=== PATIENT | male | born 1950 | race Caucasian/White ===

== ENCOUNTER → 2017-06-26 | Outpatient (CLI) | payer OTHER, BC ==
[~2017-06-26] MED LIST: CATHETER FLUSH 10 ML SYR IV PRN; IOHEXOL 350 MG/ML 100 ML (OMNIPAQUE 350) VIAL IV ONE; NS 100 ML (IVPB) BAG IV ONE
[2017-06-26 10:16] LABS: BUN/CREATININE RATIO 16; CALCIUM 8.9 MG/DL (8.5-10.1); CARBON DIOXIDE 27 MMOL/L (21-32); CHLORIDE 105 MMOL/L (98-107); CREATININE SERUM 0.98 MG/DL (0.60-1.30); GFR ESTIMATED > 60; GLUCOSE 89 MG/DL (70-105); POTASSIUM 4.2 MMOL/L (3.6-5.0); SODIUM 140 MMOL/L (135-145)
--- NOTE | 2017-06-26 11:03 | Diagnostic Imaging Report ---
PROCEDURE: CT abdomen with contrast only. TECHNIQUE: Multiple contiguous axial images were obtained through the abdomen after the administration of intravenous contrast. INDICATION: Fall onto right flank, complaining of right abdominal tenderness. COMPARISON: No prior studies are available for comparison. FINDINGS: Imaging through the lung bases does show some atelectasis or scarring in the right middle lobe and lingula. No focal liver laceration is identified. No perihepatic or perisplenic fluid is seen. Gallbladder is surgically absent. The pancreas is unremarkable. No adrenal hematoma is seen. The kidneys are unremarkable. Aorta is nonaneurysmal. 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 The bowel loops are normal in caliber. There is no evidence of hemoperitoneum. Bony structures are unremarkable. Specifically, no rib fracture or spinal fracture is identified. IMPRESSION: 1. Right middle lobe and lingular atelectasis or scarring. 2. No evidence of abdominal visceral injury. 3. No acute bony abnormality is detected. Dictated by: Dictated on workstation # [id number]
== END ==
LOC: RAD 09:32
PROVIDERS: ATTEND Internal Medicine
DX: R10.819 Abdominal tenderness, unspecified site (principal); W19.XXXA Unspecified fall, initial encounter
CPT/HCPCS: 36415; 74160; 80048

== ENCOUNTER → 2017-08-03 | Outpatient (CLI) | payer BC, OTHER ==
--- NOTE | 2017-08-03 09:35 | Diagnostic Imaging Report ---
PROCEDURE: MRI right joint upper extremity without contrast. TECHNIQUE: Multiplanar, multisequence non contrast-enhanced MRI of the right upper extremity was accomplished. INDICATION: Chronic right shoulder pain and limited range of motion. No prior studies are available for comparison. The biceps tendon is in a normal location within the bicipital groove. Glenohumeral and acromion clavicular alignment are normal. There is a moderate amount of edema identified in the distal clavicle. There is also moderate acromioclavicular joint degenerative change with osteophytes noted along the undersurface of the AC joint producing slight indentation upon the myotendinous junction of the rotator cuff. No significant joint fluid is seen. The subscapularis tendon and the rotator cuff appears intact. The supraspinatus and infraspinatus tendons of the rotator cuff appear intact. There is some mild intermediate signal noted within the supraspinatus tendon, likely on the basis of tendinosis. No tear or retraction is seen. No fluid is identified within the subacromial subdeltoid bursa. IMPRESSION: Findings suggestive of rotator cuff tendinosis as well as a acromioclavicular joint degenerative change. No definite rotator cuff tear or retraction is identified. Dictated by: Dictated on workstation # [id number]
== END ==
LOC: RAD 07:04
PROVIDERS: ATTEND Orthopaedic Surgery
DX: M25.511 Pain in right shoulder (principal); G89.29 Other chronic pain
CPT/HCPCS: 73221

== ENCOUNTER → 2021-05-03 | Outpatient (CLI) | payer BC ==
--- NOTE | 2021-05-03 09:50 | Diagnostic Imaging Report ---
EXAMINATION: Chest, 2 views. HISTORY: Asbestos exposure. COMPARISON: 03/27/2014. FINDINGS: The lung volumes are normal. No focal consolidation is seen. No large pleural effusion or pneumothorax is seen. The cardiomediastinal silhouette is normal in size and contour. No acute osseous abnormality is seen. IMPRESSION: 1. No acute pleuroparenchymal process. 2. No radiographic evidence of calcified pleural plaques or pleural effusion. No evidence of mesothelioma. Dictated by: Dictated on workstation # [id number]
== END ==
LOC: RAD 09:22
PROVIDERS: ATTEND Internal Medicine
DX: Z77.090 Contact with and (suspected) exposure to asbestos (principal)
CPT/HCPCS: 71046

== ENCOUNTER → 2021-10-20 | Outpatient (CLI) | payer BC ==
[2021-10-20 14:03] LABS: ABSOLUTE RETIC # 40 10e9/uL (24-90); BASOPHILS # (AUTO) 0.1 10^3/uL (0.0-0.1); BASOPHILS % (AUTO) 1 % (0-10); EOSINOPHILS # (AUTO) 0.1 10^3/uL (0.0-0.3); EOSINOPHILS % (AUTO) 1 % (0-10); HEMATOCRIT 37 % (40-54); HEMOGLOBIN 11.1 g/dL (13.3-17.7); LYMPHOCYTES # (AUTO) 2.1 10^3/uL (1.0-4.0); LYMPHOCYTES % (AUTO) 30 % (12-44); MEAN CORPUSCULAR HEMOGLOBIN 23 pg (25-34); MEAN CORPUSCULAR HGB CONC 30 g/dL (32-36); MEAN CORPUSCULAR VOLUME 75 fL (80-99); MEAN PLATELET VOLUME 9.4 fL (9.0-12.2); MONOCYTES # (AUTO) 0.7 10^3/uL (0.0-1.0); MONOCYTES % (AUTO) 11 % (0-12); NEUTROPHILS # (AUTO) 3.9 10^3/uL (1.8-7.8); NEUTROPHILS % (AUTO) 57 % (42-75); PLATELET COUNT 344 10^3/uL (130-400); RETICULOCYTE % 0.83 % (0.50-2.40); WHITE BLOOD COUNT 6.8 10^3/uL (4.3-11.0)
[2021-10-20 14:54] LABS: ANISOCYTOSIS SLIGHT; HYPOCHROMASIA SLIGHT; LYMPHOCYTES % (MANUAL) 40 %; MONOCYTES % (MANUAL) 7 %; NEUTROPHILS % (MANUAL) 53 %
[2021-10-20 14:55] LABS: ELLIPT/OVALOCYTES SLIGHT; MICROCYTOSIS SLIGHT
== END ==
LOC: LAB 13:10
PROVIDERS: ATTEND Internal Medicine
DX: D64.9 Anemia, unspecified (principal)
CPT/HCPCS: 36415; 82728; 85007; 85027; 85045; 85055